=== PATIENT | male | born 1975 | race Caucasian/White ===

== ENCOUNTER 2017-01-01 18:41 | Emergency (ER) | payer BC ==
[2017-01-01] MEDS ORDERED: methylPREDNISolone Sod Succ/PF 125 MG/2 ML VIAL ONE ×2 (18:55→18:57)
[2017-01-01] MEDS ORDERED: hydrOXYzine 25 MG TAB ONE (18:55)
== END 2017-01-01 19:15 | disposition home or self-care (01) ==
LOC: BURERS 18:41
DX: L23.7 Allergic contact dermatitis due to plants, except food (principal); E11.9 Type 2 diabetes mellitus without complications; F17.210 Nicotine dependence, cigarettes, uncomplicated; Z79.84 Long term (current) use of oral hypoglycemic drugs; Z79.899 Other long term (current) drug therapy
CPT/HCPCS: 96372; J2930